=== PATIENT | male | born 1995 | race Caucasian/White ===

== ENCOUNTER 2017-07-14 14:55 | Emergency (ER) | payer MEDICAID, OTHER ==
[~2017-07-14] VITALS: Ht 177.8 cm; Wt 68.0 kg
[2017-07-14 15:07] VITALS: BP 127/79
== END 2017-07-14 15:58 | disposition home or self-care (01) ==
LOC: ER 14:57
DX: K08.409 Partial loss of teeth, unspecified cause, unspecified class (principal); F10.10 Alcohol abuse, uncomplicated
CPT/HCPCS: 99282; A4606; A6402; Z7610

== ENCOUNTER 2018-10-30 09:17 | Emergency (ER) | payer MEDICAID ==
[~2018-10-30] VITALS: Ht 177.8 cm; Wt 68.0 kg
[2018-10-30 09:23] VITALS: BP 134/78
--- NOTE | 2018-10-30 09:50 | NUR ---
Right ear irrigated with normal saline. Denies pain or discomfort, per patient he feels better.
== END 2018-10-30 09:51 | disposition home or self-care (01) ==
LOC: ER 09:19
DX: H93.8X1 Other specified disorders of right ear (principal)

== ENCOUNTER 2019-02-07 15:02 | Emergency (ER) | payer MEDICAID ==
[~2019-02-07] VITALS: Ht 177.8 cm; Wt 68.0 kg
[2019-02-07 15:26] VITALS: BP 116/66
== END 2019-02-07 16:11 | disposition home or self-care (01) ==
LOC: ER 15:10
DX: H60.92 Unspecified otitis externa, left ear (principal); F10.10 Alcohol abuse, uncomplicated; Y90.9 Presence of alcohol in blood, level not specified

== ENCOUNTER 2020-01-30 14:06 | Emergency (ER) | payer MEDICAID ==
[~2020-01-30] VITALS: Ht 177.8 cm; Wt 68.0 kg
[2020-01-30 14:13] VITALS: BP 117/64
--- NOTE | 2020-01-30 14:50 | NUR ---
Patient discharged to home in stable condition. Written and verbal after care instructions given. Patient verbalizes understanding of instruction.
== END 2020-01-30 14:49 | disposition home or self-care (01) ==
LOC: ER 14:06
DX: H60.93 Unspecified otitis externa, bilateral (principal)